=== PATIENT | female | born 1945 | race Caucasian/White ===

== ENCOUNTER 2025-05-27 08:29 | Outpatient (CLI) | payer MEDICARE | END 2025-05-27 08:30 | disposition home or self-care (01) | LOC: CSHSLEEP 08:29 | PROVIDERS: ATTEND Internal Medicine | DX: G47.33 Obstructive sleep apnea (adult) (pediatric) (principal); R53.83 Other fatigue; J45.909 Unspecified asthma, uncomplicated; K51.919 Ulcerative colitis, unspecified with unspecified complications; E11.9 Type 2 diabetes mellitus without complications; R06.83 Snoring | CPT/HCPCS: 95800 ==

== ENCOUNTER 2025-07-11 09:16 | Outpatient (CLI) | payer MEDICARE | END 2025-07-11 09:17 | disposition home or self-care (01) | LOC: CSHSLEEP 09:16 | PROVIDERS: ATTEND Internal Medicine | DX: G47.33 Obstructive sleep apnea (adult) (pediatric) (principal); R53.83 Other fatigue; E11.9 Type 2 diabetes mellitus without complications; R06.83 Snoring | CPT/HCPCS: 95811 ==